=== PATIENT | female | born 1985 | race American Indian/Alaskan Native ===

== ENCOUNTER 2018-10-24 04:54 | Inpatient (IN) | payer OTHER ==
[2018-10-23 16:42] LABS: BASOPHILS ABSOLUTE AUTO 0.02 K/mm3 (0.00-0.23); BASOPHILS PERCENT AUTO 0 % (0-2); EOSINOPHILS PERCENT AUTO 3 % (0-6); Hematocrit 34.6 % (33.0-51.0); IMMATURE GRAN ABSOLUTE AUTO 0.16 K/mm3 (0.00-0.10); IMMATURE GRAN PERCENT AUTO 2 % (0-1); LYMPHOCYTES ABSOLUTE AUTO 2.34 K/mm3 (0.84-5.20); LYMPHOCYTES PERCENT AUTO 31 % (21-46); MONOCYTES ABSOLUTE AUTO 0.48 K/mm3 (0.16-1.47); MONOCYTES PERCENT AUTO 6 % (4-13); Mean Corpuscular HGB Conc 31.8 g/dL (31.5-36.5); Mean Corpuscular Volume 85 fL (80-100); Mean Platelet Volume 10.3 fL (9.1-12.4); NEUTROPHILS ABSOLUTE AUTO 4.47 K/mm3 (1.96-9.15); NEUTROPHILS PERCENT AUTO 58 % (41-73); NRBC ABSOLUTE 0.02 K/mm3 (0.00-0.02); NRBC Auto 0.3 /100 WBC (0.0-0.2); Platelet Count 373 K/mm3 (150-400); RDW Coefficient Variation 13.7 % (11.7-14.2); RDW Standard Deviation 41.8 fL (35.1-46.3); Red Blood Cell Count 4.07 M/mm3 (3.80-5.20); White Blood Cell Count 7.67 K/mm3 (4.00-11.30)
[~2018-10-24] VITALS: Ht 157.5 cm; Wt 93.6 kg
[~2018-10-24 04:54] MED LIST: ALBU90OI INH; Amoxicillin500 MG PO; CEPH500 PO; CETI10 PO; CYCL10 PO; DIPH50; FAMO20 PO; IBUP800 PO; LORA10ER PO; NAPR500 PO; OXYC10TA19 PO; PRED10 PO; PRED20 PO; TOBDEXOPSU LEFTEYE; Verotin-Gr Cap1 EACH PO; Zofran Odt4 MG SL
[2018-10-24 07:59] LABS: U Amphetamine Screen Not Detected; U Barbituate Screen Not Detected; U Benzodiazapine Screen Not Detected; U Buprenorphine Screen Not Detected; U Cannabinoids Screen Not Detected; U Cocaine Screen Not Detected; U Methadone Screen Not Detected; U Methamphetamine Screen Not Detected; U Opiates Screen Not Detected; U Oxycodone Screen Not Detected; U Phencyclidine Screen Not Detected; U Propoxyphene Screen Not Detected
--- NOTE | 2018-10-24 08:16 | NUR ---
10/24/18 0816 AltafNoelle A BABY BORN AT 0809. SEGMENT OF UMBILICAL CORD GIVEN TO FBP RN. SAMPLE OF BLOOD FROM UMBILICAL CORD GIVENT TO FBP RN.
[2018-10-24 08:25] LABS: PO2 Cord - Arterial 14.3 mmHg (16-20); pH Cord - Arterial 7.27 (7.28-7.35)
[2018-10-24 08:26] LABS: PCO2 Cord - Venous 46.2 mmHg (40-50); pH Umbilical Cord - Venous 7.33 (7.26-7.35)
[2018-10-25 05:58] LABS: BASOPHILS ABSOLUTE AUTO 0.02 K/mm3 (0.00-0.23); BASOPHILS PERCENT AUTO 0 % (0-2); EOSINOPHILS ABSOLUTE AUTO 0.22 K/mm3 (0.00-0.68); EOSINOPHILS PERCENT AUTO 2 % (0-6); Hematocrit 31.1 % (33.0-51.0); IMMATURE GRAN ABSOLUTE AUTO 0.21 K/mm3 (0.00-0.10); IMMATURE GRAN PERCENT AUTO 1 % (0-1); LYMPHOCYTES ABSOLUTE AUTO 3.25 K/mm3 (0.84-5.20); LYMPHOCYTES PERCENT AUTO 22 % (21-46); MONOCYTES ABSOLUTE AUTO 0.93 K/mm3 (0.16-1.47); MONOCYTES PERCENT AUTO 6 % (4-13); Mean Corpuscular HGB 27.4 pg (26.0-34.0); Mean Corpuscular HGB Conc 32.2 g/dL (31.5-36.5); Mean Corpuscular Volume 85 fL (80-100); Mean Platelet Volume 10.5 fL (9.1-12.4); NEUTROPHILS ABSOLUTE AUTO 10.22 K/mm3 (1.96-9.15); NEUTROPHILS PERCENT AUTO 69 % (41-73); Platelet Count 291 K/mm3 (150-400); RDW Coefficient Variation 13.7 % (11.7-14.2); RDW Standard Deviation 42.3 fL (35.1-46.3); Red Blood Cell Count 3.65 M/mm3 (3.80-5.20); White Blood Cell Count 14.85 K/mm3 (4.00-11.30)
[2018-10-26] MEDS ORDERED: IBUP800 PO (15:32)
[2018-10-26] MEDS ORDERED: Percocet 5-3251 EACH PO (15:32)
== END 2018-10-26 16:00 | disposition home or self-care (01) | DRG 788 ==
LOC: BC 04:54 → PRE IP 07:30 → BC 21:16
PROVIDERS: ADMIT Obstetrics & Gynecology
PROC: 10D00Z1 Extraction of Products of Conception, Low, Open Approach (ICD-10-PCS; principal; 2018-10-24 07:30)
DX: O34.211 Maternal care for low transverse scar from previous cesarean delivery (principal); Z3A.39 39 weeks gestation of pregnancy; Z37.0 Single live birth; O99.334 Smoking (tobacco) complicating childbirth; F17.210 Nicotine dependence, cigarettes, uncomplicated; Z88.2 Allergy status to sulfonamides; Z91.011 Allergy to milk products; Z91.018 Allergy to other foods
CPT/HCPCS: 82803; 82947; 85025; 86850; 86900; 86901; C1751; J0690; J1100; J1885; J2370; J2405; J2590; J2765; J3010; J7120

== ENCOUNTER 2019-02-15 18:05 | Emergency (ER) | payer OTHER ==
[~2019-02-15] VITALS: Ht 157.5 cm; Wt 83.9 kg
[~2019-02-15 18:05] MED LIST changes: +Percocet 5-3251 EACH PO
[2019-02-15 18:54] LABS: Source, Urine Clean Catch
[2019-02-15 19:00] LABS: Bilirubin, Urine Neg (Neg); Blood, Urine Neg (Neg); Glucose Qualitative, Urine Neg (Neg); Ketones, Urine Neg (Neg); Leukocyte Esterase, Urine 1+ (Neg); Nitrite, Urine Neg (Neg); Protein, Urine Neg (Neg); Specific Gravity, Urine 1.005 (1.003-1.022); Urobilinogen, Urine 2+ (Normal)
[2019-02-15 19:08] LABS: Appearance, Urine Clear (Clear); Color, Urine Yellow (P-Yellow)
[2019-02-15 19:09] LABS: Bacteria Mod /hpf; Mucus Light (0-Heavy); Red Blood Cells, Urine Not Seen /hpf (0-2); Squamous Epithelial Cells Mod /hpf (Few); White Blood Cells, Urine 0-2 /hpf (0-5)
== END 2019-02-15 20:00 | disposition home or self-care (01) ==
LOC: ER 18:05
PROVIDERS: Emergency Medicine
DX: R10.31 Right lower quadrant pain (principal); Z91.011 Allergy to milk products; Z88.2 Allergy status to sulfonamides; Z91.018 Allergy to other foods
CPT/HCPCS: 81001; 81025; 87086; 99284

== ENCOUNTER 2019-04-30 08:47 | Day surgery (SDC) | payer OTHER ==
[~2019-04-30] VITALS: Ht 157.5 cm; Wt 87.7 kg
[~2019-04-30 08:47] MED LIST changes: +Advil200 M1
[2019-04-30] MEDS ORDERED: UNK BIRTH CONTROL PO (09:53)
== END 2019-04-30 12:26 | disposition home or self-care (01) ==
LOC: ORSCSDS 08:47
PROVIDERS: Obstetrics & Gynecology
PROC: 0UBF4ZX Excision of Cul-de-sac, Percutaneous Endoscopic Approach, Diagnostic (ICD-10-PCS; principal; 2019-04-30 10:15)
PROC: 0UC Female Reproductive System, Extirpation (ICD-10-PCS; principal; 2019-04-30 10:15)
DX: T83.32XD Displacement of intrauterine contraceptive device, subsequent encounter (principal); J45.909 Unspecified asthma, uncomplicated; Z87.891 Personal history of nicotine dependence
CPT/HCPCS: 88300; 88305; J0171; J0690; J1100; J1885; J2250; J2405; J2710; J3010; J7120

== ENCOUNTER 2020-02-18 14:22 | Emergency (ER) | payer OTHER ==
[~2020-02-18] VITALS: Ht 160 cm; Wt 70.8 kg
[~2020-02-18 14:22] MED LIST changes: +UNK BIRTH CONTROL PO
[2020-02-18 15:01] LABS: Source, Urine Clean Catch
[2020-02-18 15:05] LABS: Appearance, Urine Turbid (Clear); Bilirubin, Urine Neg (Neg); Blood, Urine 5+ (Neg); Color, Urine Yellow (P-Yellow); Glucose Qualitative, Urine Neg (Neg); Ketones, Urine 1+ (Neg); Leukocyte Esterase, Urine 3+ (Neg); Nitrite, Urine Neg (Neg); Protein, Urine 2+ (Neg); Urobilinogen, Urine 3+ (Normal)
[2020-02-18 15:12] LABS: Bacteria Many /hpf; Red Blood Cells, Urine TNTC /hpf (0-2); Squamous Epithelial Cells Few /hpf (Few); White Blood Cells, Urine TNTC /hpf (0-5)
[2020-02-18] MEDS ORDERED: Pyridium100 MG PO (15:35)
[2020-02-18] MEDS ORDERED: CEPH500 PO (15:35)
== END 2020-02-18 16:14 | disposition home or self-care (01) ==
LOC: ER 14:22
PROVIDERS: Physician Assistant
DX: N39.0 Urinary tract infection, site not specified (principal); Z91.011 Allergy to milk products; Z88.2 Allergy status to sulfonamides; Z91.018 Allergy to other foods; Z88.5 Allergy status to narcotic agent; Z88.8 Allergy status to other drugs, medicaments and biological substances; Z87.891 Personal history of nicotine dependence
CPT/HCPCS: 81001; 81025; 87077; 87086; 87186; 96365; 99284-25; J0696

== ENCOUNTER 2023-11-02 00:14 | Observation (INO) | payer OTHER ==
[~2023-11-02] VITALS: Ht 160 cm; Wt 79.4 kg
[~2023-11-02 00:14] MED LIST changes: +Pyridium100 MG PO
[2023-11-02 01:04] LABS: Source, Urine Clean Catch
[2023-11-02 01:06] LABS: Bilirubin, Urine Neg (Neg); Blood, Urine 5+ (Neg); Glucose Qualitative, Urine Neg (Neg); Ketones, Urine Neg (Neg); Leukocyte Esterase, Urine 1+ (Neg); Nitrite, Urine Neg (Neg); Protein, Urine Neg (Neg); Urobilinogen, Urine NORM (Normal); pH, Urine 6.5 (5.0-8.0)
[2023-11-02 01:14] LABS: Appearance, Urine Clear (Clear); Color, Urine Pale Yellow (P-Yellow)
[2023-11-02 01:15] LABS: Bacteria Few /hpf; Red Blood Cells, Urine 25-50 /hpf (0-2); Squamous Epithelial Cells Few /hpf (Few); White Blood Cells, Urine 0-2 /hpf (0-5)
[2023-11-02 01:46] LABS: U Amphetamine Screen Not Detected; U Barbituate Screen Not Detected; U Benzodiazapine Screen Not Detected; U Buprenorphine Screen Not Detected; U Cannabinoids Screen Not Detected; U Cocaine Screen Not Detected; U Methadone Screen Not Detected; U Methamphetamine Screen Not Detected; U Opiates Screen Not Detected; U Oxycodone Screen Not Detected; U Phencyclidine Screen Not Detected
[2023-11-02 03:00] LABS: BASOPHILS ABSOLUTE AUTO 0.03 K/mm3 (0.00-0.23); BASOPHILS PERCENT AUTO 0 % (0-2); EOSINOPHILS ABSOLUTE AUTO 0.35 K/mm3 (0.00-0.68); EOSINOPHILS PERCENT AUTO 3 % (0-6); Hematocrit 24.7 % (33.0-51.0); Hemoglobin 7.4 g/dL (11.5-16.0); IMMATURE GRAN ABSOLUTE AUTO 0.34 K/mm3 (0.00-0.10); IMMATURE GRAN PERCENT AUTO 3 % (0-1); LYMPHOCYTES ABSOLUTE AUTO 2.84 K/mm3 (0.84-5.20); LYMPHOCYTES PERCENT AUTO 23 % (21-46); MONOCYTES ABSOLUTE AUTO 0.73 K/mm3 (0.16-1.47); MONOCYTES PERCENT AUTO 6 % (4-13); Mean Corpuscular HGB 22.5 pg (26.0-34.0); Mean Corpuscular Volume 75 fL (80-100); NEUTROPHILS ABSOLUTE AUTO 7.99 K/mm3 (1.96-9.15); NEUTROPHILS PERCENT AUTO 65 % (41-73); NRBC ABSOLUTE 0.08 K/mm3 (0.00-0.02); NRBC Auto 0.7 /100 WBC (0.0-0.2); Platelet Count 464 K/mm3 (150-400); RDW Coefficient Variation 15.5 % (11.7-14.2); Red Blood Cell Count 3.29 M/mm3 (3.80-5.20); White Blood Cell Count 12.28 K/mm3 (4.00-11.30)
[2023-11-02] MEDS ORDERED: Lactated Ringer's 1,000 ML IV ONE (03:45)
[2023-11-02 03:49] LABS: Albumin, Blood 2.4 g/dL (3.4-5.0); Albumin/Globulin Ratio 0.6 (0.8-1.8); Bilirubin, Total 0.2 mg/dL (0.1-1.0); Bun/Creatinine Ratio 28.2 (12.0-20.0); Calcium, Blood 8.4 mg/dL (8.5-10.1); Creatinine, Blood 0.43 mg/dL (0.40-1.00); Globulin, Blood 4.3 g/dL (2.2-4.0); Potassium, Blood 3.7 mmol/L (3.5-5.5); Total Protein, Blood 6.7 g/dL (6.4-8.2)
[2023-11-02] MEDS ORDERED: NS 1,000 ML IV ONE (06:15)
[2023-11-02 07:38] VITALS: BP 125/60
--- NOTE | 2023-11-02 08:08 | NUR ---
REPORT RECEIVED FROM EMERGENCY ROOM LAURY PETERSON AT 0715. LAURY AGUERO TRANSFERRED PT TO ROOM 128 AT 0730. PT DENIES ANY CRAMPING/PAIN, HEADACHES, DIZZINESS, BLURRED VISION, CHEST PAIN OR PRESSURE. PT'S BLEEDING IS SCANT RED BLOOD. ARRIVED WITH A UNIT OF PRBC'S RUNNING AT 150ML/HR WITH NORMAL SALINE. DR. BAINS CALLED AT 0800 AND NOTFIED OF PT'S ARRIVAL TO FLOOR. NOTIFIED OF PRBC RUNNING AND BLEEDING NOW SCANT, NO PAIN AND NO UC'S. TELEPHONE ORDER TO D/C PT HOME AFTER 1 HOUR POST TRANSFUSION. ORDERS FOR COMPLETE BED REST AND ESTABLISH CARE MALLORY. IF ANY MORE BLEEDING, TO RETURN TO [facility] IMMEDIATELY. NO OTHER ORDERS AT THIS TIME.
[2023-11-02 08:19] VITALS: BP 126/67
[2023-11-02 08:41] VITALS: BP 107/61
[2023-11-02 10:29] VITALS: BP 121/64
--- NOTE | 2023-11-02 10:45 | NUR ---
DISCHARGE INSTRUCTIONS, WRITTEN AND VERBAL, GIVEN TO PT. PT DENIED HAVING ANY QUESTIONS. IV DISCONTINUED IN RIGHT UPPER ARM/AC. BLEEDING HAS NOT INCREASED. PT IS DISCHARGED HOME.
[2023-11-05 23:37] VITALS: BP 135/63
[2023-11-05 23:53] VITALS: BP 118/58
[2023-11-06] VITALS (11 sets, daily range): BP systolic 103–135; BP diastolic 58–82
[2023-11-07 09:01] VITALS: BP 116/59
== END 2023-11-02 11:16 | disposition home or self-care (01) ==
LOC: ER 00:14 → BC 00:15 → ER 00:15 → BC 11:16
PROVIDERS: Emergency Medicine; ADMIT Obstetrics & Gynecology
DX: O44.12 Complete placenta previa with hemorrhage, second trimester (principal); D62 Acute posthemorrhagic anemia; Z3A.23 23 weeks gestation of pregnancy; Z88.2 Allergy status to sulfonamides; Z88.5 Allergy status to narcotic agent; Z88.8 Allergy status to other drugs, medicaments and biological substances; Z87.891 Personal history of nicotine dependence
CPT/HCPCS: 36415; 36430; 76815; 76817; 80053; 81001; 84702; 85025; 86850; 86900; 86901; 86923; 87077; 87086; 87147; 87186; 96360; 99285-25; G0378; J7030; J7120; P9016

== ENCOUNTER 2023-11-05 19:52 | Observation (INO) | payer OTHER ==
[~2023-11-05] VITALS: Ht 157.5 cm; Wt 83.9 kg
[2023-11-05 20:39] LABS: Source, Urine Clean Catch
[2023-11-05 20:42] LABS: Appearance, Urine Cloudy (Clear); Bilirubin, Urine Neg (Neg); Blood, Urine 5+ (Neg); Color, Urine Red (P-Yellow); Glucose Qualitative, Urine Neg (Neg); Ketones, Urine 2+ (Neg); Leukocyte Esterase, Urine 2+ (Neg); Nitrite, Urine Neg (Neg); Protein, Urine 3+ (Neg); Specific Gravity, Urine 1.025 (1.003-1.022); Urobilinogen, Urine NORM (Normal)
[2023-11-05 20:54] LABS: Red Blood Cells, Urine TNTC /hpf (0-2)
[2023-11-05 20:56] LABS: Bacteria Few /hpf; Squamous Epithelial Cells Few /hpf (Few)
[2023-11-05 20:56] LABS: BASOPHILS ABSOLUTE AUTO 0.02 K/mm3 (0.00-0.23); BASOPHILS PERCENT AUTO 0 % (0-2); EOSINOPHILS ABSOLUTE AUTO 0.23 K/mm3 (0.00-0.68); EOSINOPHILS PERCENT AUTO 2 % (0-6); Hematocrit 29.8 % (33.0-51.0); Hemoglobin 9.1 g/dL (11.5-16.0); IMMATURE GRAN ABSOLUTE AUTO 0.18 K/mm3 (0.00-0.10); IMMATURE GRAN PERCENT AUTO 2 % (0-1); LYMPHOCYTES ABSOLUTE AUTO 2.46 K/mm3 (0.84-5.20); LYMPHOCYTES PERCENT AUTO 25 % (21-46); MONOCYTES ABSOLUTE AUTO 0.49 K/mm3 (0.16-1.47); MONOCYTES PERCENT AUTO 5 % (4-13); Mean Corpuscular HGB Conc 30.5 g/dL (31.5-36.5); Mean Corpuscular Volume 75 fL (80-100); Mean Platelet Volume 9.1 fL (9.1-12.4); NEUTROPHILS ABSOLUTE AUTO 6.41 K/mm3 (1.96-9.15); NEUTROPHILS PERCENT AUTO 66 % (41-73); NRBC ABSOLUTE 0.03 K/mm3 (0.00-0.02); NRBC Auto 0.3 /100 WBC (0.0-0.2); Platelet Count 458 K/mm3 (150-400); RDW Coefficient Variation 16.7 % (11.7-14.2); RDW Standard Deviation 45.1 fL (35.1-46.3); Red Blood Cell Count 3.95 M/mm3 (3.80-5.20); White Blood Cell Count 9.79 K/mm3 (4.00-11.30)
[2023-11-05 21:36] LABS: Albumin, Blood 2.6 g/dL (3.4-5.0); Albumin/Globulin Ratio 0.5 (0.8-1.8); Bilirubin, Total 0.2 mg/dL (0.1-1.0); Bun/Creatinine Ratio 26.1 (12.0-20.0); Calcium, Blood 8.9 mg/dL (8.5-10.1); Creatinine, Blood 0.5 mg/dL (0.40-1.00); Globulin, Blood 4.8 g/dL (2.2-4.0); Potassium, Blood 3.8 mmol/L (3.5-5.5); Total Protein, Blood 7.4 g/dL (6.4-8.2)
[2023-11-05 22:50] VITALS: BP 118/78
[2023-11-05] MEDS ORDERED: [UNRECOGNIZED DRUG - OTHER] IM SCH (23:00)
[2023-11-06] MEDS ORDERED: Cefpodoxime Proxetil 200 MG Tab PO SCH (00:03)
[2023-11-06] MEDS ORDERED: Betamethasone Sod Phos/Acetate 6 MG/ML 5ML VIAL IM SCH (00:10)
[2023-11-06] MEDS ORDERED: Sod Ferric Gluc Complx/Sucrose 125 MG in NS 100 ML IV SCH (00:48)
[2023-11-06] MEDS ORDERED: Lactated Ringer's 1,000 ML IV ONE (01:10)
[2023-11-06 07:27] LABS: BASOPHILS ABSOLUTE AUTO 0.02 K/mm3 (0.00-0.23); BASOPHILS PERCENT AUTO 0 % (0-2); EOSINOPHILS ABSOLUTE AUTO 0.01 K/mm3 (0.00-0.68); EOSINOPHILS PERCENT AUTO 0 % (0-6); Hematocrit 28.1 % (33.0-51.0); Hemoglobin 8.3 g/dL (11.5-16.0); IMMATURE GRAN ABSOLUTE AUTO 0.18 K/mm3 (0.00-0.10); IMMATURE GRAN PERCENT AUTO 2 % (0-1); LYMPHOCYTES ABSOLUTE AUTO 1.14 K/mm3 (0.84-5.20); LYMPHOCYTES PERCENT AUTO 10 % (21-46); MONOCYTES ABSOLUTE AUTO 0.08 K/mm3 (0.16-1.47); MONOCYTES PERCENT AUTO 1 % (4-13); Mean Corpuscular HGB 22.3 pg (26.0-34.0); Mean Corpuscular HGB Conc 29.5 g/dL (31.5-36.5); Mean Corpuscular Volume 76 fL (80-100); Mean Platelet Volume 10.2 fL (9.1-12.4); NEUTROPHILS ABSOLUTE AUTO 9.66 K/mm3 (1.96-9.15); NEUTROPHILS PERCENT AUTO 87 % (41-73); NRBC ABSOLUTE 0.02 K/mm3 (0.00-0.02); NRBC Auto 0.2 /100 WBC (0.0-0.2); Platelet Count 251 K/mm3 (150-400); RDW Coefficient Variation 16.7 % (11.7-14.2); RDW Standard Deviation 45.1 fL (35.1-46.3); Red Blood Cell Count 3.72 M/mm3 (3.80-5.20); White Blood Cell Count 11.09 K/mm3 (4.00-11.30)
[2023-11-06 09:08] LABS: U Amphetamine Screen Not Detected; U Barbituate Screen Not Detected; U Benzodiazapine Screen Not Detected; U Buprenorphine Screen Not Detected; U Cannabinoids Screen Not Detected; U Cocaine Screen Not Detected; U Methadone Screen Not Detected; U Methamphetamine Screen Not Detected; U Opiates Screen Not Detected; U Oxycodone Screen Not Detected; U Phencyclidine Screen Not Detected
[2023-11-06] MEDS ORDERED: Acetaminophen 500 MG Tab PO PRN (20:30)
[2023-11-07] MEDS ORDERED: Cefpodoxime Pr100 MG PO (09:54)
[2023-11-07] MEDS ORDERED: SLOW FE137 MG (09:54)
[2023-11-07] MEDS ORDERED: PRENATAL TABLE1 EAC2 PO (09:55)
--- NOTE | 2023-11-07 10:15 | NUR ---
Printed d/c instructions reviewed w/pt regarding precautions, previa precautions, pelvic rest and follow up. Pt verbalized understanding of teaching. Awaiting ride to d/c home.
[2023-11-07 19:27] LABS: HIV 1,2 COMBO ANTIGEN/ANTIBODY Negative (Negative)
[2023-11-08 08:37] LABS: HEPATITIS B SURFACE ANTIBODY >1000.00 IU/L
[2023-11-08 10:29] LABS: HEPATITIS B SURFACE ANTIGEN Negative (Negative)
== END 2023-11-07 10:45 | disposition home or self-care (01) ==
LOC: ER 19:52 → SURS 19:53 → BC 23:43
PROVIDERS: Student in an Organized Health Care Education/Training Program; ADMIT Obstetrics & Gynecology
DX: O44.12 Complete placenta previa with hemorrhage, second trimester (principal); O99.012 Anemia complicating pregnancy, second trimester; D62 Acute posthemorrhagic anemia; O23.42 Unspecified infection of urinary tract in pregnancy, second trimester; N39.0 Urinary tract infection, site not specified; O34.219 Maternal care for unspecified type scar from previous cesarean delivery; O09.522 Supervision of elderly multigravida, second trimester; Z3A.24 24 weeks gestation of pregnancy; Z88.2 Allergy status to sulfonamides; Z88.5 Allergy status to narcotic agent; Z79.899 Other long term (current) drug therapy
CPT/HCPCS: 36415; 59025; 76815; 76817; 80053; 81001; 84702; 85025; 86592; 86762; 86850; 86900; 86901; 87086; 87340; 87389; 96365; 96366; 96372; 99285-25; A9270; G0378; J0702; J2916; J7120